=== PATIENT | male | born 1945 | race Caucasian/White ===

== ENCOUNTER 2016-03-14 16:06 | Inpatient (IN) | payer OTHER ==
[~2016-03-14] VITALS: Ht 177.8 cm; Wt 112.9 kg
--- NOTE | ~2016-03-14 | 2DMMODE ---
[facility] [place] [address] 2 D/M-MODE ECHOCARDIOGRAM Name: RD BLACK Room #: 436-P [facility] IN .R.#: [id number] Admission: 03/14/16 Attend Phys: Julianna Cameron Discharge: Date of : 41 Date of Service: 03/15/16 1516 Report #: [id number] THIS REPORT FOR: //name// Transthoracic Echocardiography Ordering physician: Phylicia Moise Referring physician: Phylicia Moise [employer] Apprentice: Dilma Crawford Indications/History: Elevated BNP. Weakness. Hx: CABG, COPD, HTN, DM, Obesity. BP: 111 / HR: 83bpm Height: 70in Weight: 249.5lb 56 Study data: M-mode, complete 2D, complete spectral Doppler, and color Doppler. Location: Echo laboratory. Routine. Image quality was fair. The study was technically limited due to restricted patient mobility and body habitus. 2D measurements Normal Normal LVID ED 49.7mm 36-57 IVS ED 15mm 6-11 LVID ES 36.2mm 23-40 LVPW ED 14.3mm 6-11 LA volume 16ml/m2 16-28 AoRoot diam 37mm 21-37 index ED LVOT diameter 20mm 18-23 Findings: Left ventricle: The cavity size was normal. Wall thickness was increased in a pattern of mild to moderateLVH. Systolic function was normal. The estimated ejection fraction was in the range of 55% to 60%. Wall motion was normal. Right ventricle: Poorly visualized. Right atrium: Poorly visualized. Appearsnormal in size. Left atrium: The atrium was normal in size. Volume index: 16ml/m2 (S). Aortic valve: Poorly visualized. Moderately calcified leaflets. Doppler: There was no stenosis. No [facility] [address] [place] [address] 2 D/M-MODE ECHOCARDIOGRAM Name: RD BLACK Room #: 436-P [facility] IN M.Cathy.#: [id number] Admission: 03/14/16 Attend Phys: Julianna Cameron Discharge: Date of : 41 Date of Service: 03/15/16 1516 Report #: [id number] regurgitation. Peak velocity: 122.3cm/s (S). Mitral valve: The valve appears to be grossly normal. Doppler: There was no evidence for stenosis. No regurgitation. Peak E-wave velocity: 82.7cm/s. Peak gradient: 2.7mm Hg (D). Peak A-wave velocity: 98.5cm/s. Tricuspid valve: Poorly visualized. Structurally normal valve. Doppler: There was no evidence for stenosis. Trivial regurgitation. Regurgitant peak velocity: 186cm/s. Peak RV-RA gradient: 14mm Hg (S). Pulmonic valve: Poorly visualized. Pericardium: There was no pericardial effusion. Aorta: Aortic root: The aortic root was normal in size. Ascending aorta is mildly dilated at 3.9cm. Pulmonary artery: Systolic pressure was estimated to be 14mm Hg plus the right atrial pressure. Diastolic function: Doppler parameters are consistent with abnormal left ventricular relaxation (grade 1 diastolic dysfunction). Systemic veins: Inferior vena cava: Poorly visualized. Conclusions Limited echo study. 1. Left ventricle: Systolic function was normal. The estimated ejection fraction was in the range of 55% to 60%. Wall motion was normal. Doppler parameters are consistent with abnormal left ventricular relaxation (grade 1 diastolic dysfunction). 2. Aortic valve: Poorly visualized. Moderately calcified leaflets. There was no stenosis. No regurgitation. 3. Mitral valve: The valve appears to be grossly normal. No regurgitation. 4. Pericardium, extracardiac: There was no pericardial effusion. <ELECTRONICALLY SIGNED> By: Reynaldo Taylor MD, [facility] 03/15/16 1640 1516 1640 Reynaldo Taylor MD, [facility] /corey
--- NOTE | ~2016-03-14 | EKG ---
[address] [address] ELECTROCARDIOGRAM REPORT Name: RD BLACK Room #: 436-P ADM IN M.R.#: [id number] Admission: 03/14/16 Attend Phys: Bin Quick MD Discharge: Date of : 41 Report #: [id number] THIS REPORT FOR: //name// [facility] ED Test Date: 2016-03-14 Test Time: 16:23:24 Pat Name: RD BLACK Department: Room: [facility] Gender: M Product Management Specialist: oleg : 1945 Requested By: Analilia Marrero Order Number: [id number] MD: Gal Glaser Measurements Intervals [place] Rate: 92 P: 57 [place]: 211 QRS: -81 QRSD: 171 T: 64 QT: 393 QTc: 487 Interpretive Statements Sinus rhythm Borderline prolonged [place] interval Probable left atrial enlargement RBBB and LAFB Left ventricular hypertrophy No previous ECG available for comparison Electronically Signed On 03-15-2016 8:18:08 PAIN MANAGEMENT SPECIALIST by Gal Glaser [email or web address] <ELECTRONICALLY SIGNED> By: Gal Glaser MD 03/15/16 0818 22 22 Gal Glaser MD /MEGAN
[~2016-03-14 16:06] MED LIST: AUGMENTIN 500-1 EACH PO; AZITHROMYCIN 2250 MG PO; CHERACOL COUGH120 ML PO; INSULIN; LANTUS SC; LASIX 40 MG TAB40 M1 PO; LIPITOR20 MG PO; LISINOPRIL30 MG PO; LORTAB 5 MG/5001 TA1 PO; NORCO 5-325 TA1 EACH PO; NOVOLIN R100 UNIT/3 IJ; PREDNISONE 20 M20 MG PO; TYLENOL325 MG PO; [UNRECOGNIZED DRUG - OTHER]
[2016-03-14 16:07] VITALS: BP 174/122
[2016-03-14 18:24] LABS: BASOPHILS 0.4 % (0.0-2.0); EOSINOPHILS 3.5 % (0.0-3.0); HEMATOCRIT 35.7 % (42.0-52.0); HEMOGLOBIN 11.3 gm/dL (14.0-18.0); LYMPHOCYTES 13.4 % (24.0-44.0); MANUAL DIFF NO; MCHC 31.8 % (28.0-37.0); MCV 72.2 fL (80.0-100.0); MONOCYTES 9.9 % (1.0-8.0); PLATELET COUNT 251 thou/uL (150-400); POLYS 72.8 % (36.0-66.0); RBC 4.94 mil/uL (4.50-6.00); RDW 17.2 % (10.5-14.5); WBC 9.6 thou/uL (4.0-11.0)
[2016-03-14 18:39] LABS: APTT 28.2 Seconds (24.5-32.8); PROTIME 10.7 Seconds (9.3-11.4)
[2016-03-14 18:47] LABS: ALBUMIN 3.2 g/dL (3.4-5.0); ALKALINE PHOSPHATASE 125 U/L (46-116); ANION GAP 7 mmol/L (7-16); BUN 23 mg/dL (7-18); CALCIUM 8.9 mg/dL (8.5-10.1); CHLORIDE 84 mmol/L (98-107); CO2 33 mmol/L (21-32); CREATININE 2.5 mg/dL (0.6-1.3); NT-PRO BRAIN NAT PEPTIDE 1920 pg/mL (<300); POTASSIUM 5.3 mmol/L (3.5-5.1); SGOT 17 U/L (15-37); SGPT 23 U/L (30-65); SODIUM 124 mmol/L (136-145); TOTAL BILIRUBIN 0.7 mg/dL (<0.1-1.0); TOTAL PROTEIN 8.9 g/dL (6.4-8.2); TROPONIN-I < 0.04 ng/mL (<0.04-0.07)
[2016-03-14 18:51] LABS: GLUCOSE 524 mg/dL (70-99)
[2016-03-14 20:30] VITALS: BP 128/63; BP 150/71
[2016-03-14 20:59] LABS: URINE BILIRUBIN NEGATIVE (Negative); URINE BLOOD 1+ (Negative); URINE COLOR YELLOW; URINE GLUCOSE-RANDOM* 3+ (Negative); URINE KETONES NEGATIVE (Negative); URINE LEUKOCYTES-REFLEX NEGATIVE (Negative); URINE PROTEIN (DIPSTICK) 1+ (Negative); URINE UROBILINOGEN 0.2 E.U./dl (0.2-1.0)
[2016-03-14 21:07] LABS: CASTS None Seen /LPF (None Seen); CRYSTALS None Seen /LPF (None Seen); SQUAMOUS None Seen /LPF (0-3); URINE WBC-REFLEX 0-5 Rare /HPF (0-5)
[2016-03-14 21:08] LABS: URINE RBC 0-2 Rare /HPF (0-2)
[2016-03-14 21:50] VITALS: BP 133/74
[2016-03-14] MEDS ORDERED: LASIX 20 MG TAB20 MG PO (23:48)
[2016-03-14] MEDS ORDERED: TRAMADOL 50 MG50 MG PO (23:52)
[2016-03-14] MEDS ORDERED: NOVOLOG100 UNIT/1 SUBQ (23:53)
[2016-03-14] MEDS ORDERED: COZAAR 25 MG TA25 M1 (23:54)
[2016-03-14] MEDS ORDERED: MYSOLINE50 MG (23:54)
[2016-03-14] MEDS ORDERED: CLARITIN10 MG PO (23:55)
[2016-03-14] MEDS ORDERED: SPIRIVA INH (23:55)
[2016-03-14] MEDS ORDERED: ADVAIR HFA115 MCG/21 (23:55)
[2016-03-14] MEDS ORDERED: NITROGLYCERIN0.4 MG SUBLING (23:56)
[2016-03-14 23:57] VITALS: BP 151/79
[2016-03-14] MEDS ORDERED: ASPIR 8181 MG PO (23:58)
[2016-03-14] MEDS ORDERED: PROAIR HFA8.5 GM (23:58)
[2016-03-14] MEDS ORDERED: THEO-24100 MG (23:59)
[2016-03-15] VITALS (9 sets, daily range): BP systolic 111–151; BP diastolic 41–86
[2016-03-15] MEDS ORDERED: LOPRESSOR100 M1
[2016-03-15 06:50] LABS: HEMATOCRIT 29.5 % (42.0-52.0); HEMOGLOBIN 9.4 gm/dL (14.0-18.0); MCH 22.8 pg (26.0-34.0); MCHC 31.9 % (28.0-37.0); MCV 71.4 fL (80.0-100.0); RBC 4.13 mil/uL (4.50-6.00); RDW 16.6 % (10.5-14.5); WBC 9.3 thou/uL (4.0-11.0)
[2016-03-15 07:24] LABS: ANION GAP 6 mmol/L (7-16); BUN 24 mg/dL (7-18); CALCIUM 8.1 mg/dL (8.5-10.1); CHLORIDE 93 mmol/L (98-107); CHOLESTEROL 105 mg/dL (<200); CO2 32 mmol/L (21-32); GLUCOSE 312 mg/dL (70-99); HDL CHOLESTEROL 31 mg/dL (>40); LDL CHOLESTEROL 45 mg/dL (<100); POTASSIUM 4.7 mmol/L (3.5-5.1); SODIUM 131 mmol/L (136-145); TC:HDL 3.4 Ratio (Not establshd); TRIGLYCERIDE 145 mg/dL (<150); VLDL 29 mg/dL (<40)
[2016-03-15 16:09] LABS: TSH 3.01 uIU/mL (0.450-4.500)
[2016-03-15] MEDS ORDERED: LEVEMIR SUBQ (17:43)
[2016-03-15 22:09] LABS: GLYCOHEMOGLOBIN (HGB A1C) 12.3 % (4.8-5.6)
[2016-03-16] VITALS (10 sets, daily range): BP systolic 87–145; BP diastolic 53–81
[2016-03-16 06:31] LABS: ALBUMIN 2.7 g/dL (3.4-5.0); CALCIUM 8.3 mg/dL (8.5-10.1); CREATININE 2.3 mg/dL (0.6-1.3); PHOSPHORUS 2.5 mg/dL (2.5-4.9); POTASSIUM 4.7 mmol/L (3.5-5.1)
[2016-03-17] VITALS (8 sets, daily range): BP systolic 121–145; BP diastolic 47–104
[2016-03-17] MEDS ORDERED: LANTUS100 UNIT/M SUBQ (10:21)
[2016-03-17] MEDS ORDERED: LOPRESSOR50 PO (10:21)
[2016-03-17] MEDS ORDERED: ASPIR 8181 MG PO (10:21)
[2016-03-17] MEDS ORDERED: HUMALOG100 UNIT/1 SUBQ (10:26)
[2016-03-17] MEDS ORDERED: NYAMYC15 GM TOP (10:26)
[2016-03-17] MEDS ORDERED: DUONEB 2.5-0.5 M3 ML INH (10:26)
[2016-03-17] MEDS ORDERED: LEVAQUIN 500 M500 M2 PO (11:04)
[2016-03-17 16:03] LABS: URINE BILIRUBIN NEGATIVE (Negative); URINE BLOOD 2+ (Negative); URINE COLOR YELLOW; URINE GLUCOSE-RANDOM* NEGATIVE (Negative); URINE KETONES NEGATIVE (Negative); URINE LEUKOCYTES-REFLEX 2+ (Negative); URINE PROTEIN (DIPSTICK) 2+ (Negative); URINE SPECIFIC GRAVITY 1.025 (1.003-1.035); URINE UROBILINOGEN 0.2 E.U./dl (0.2-1.0)
[2016-03-17 16:20] LABS: CRYSTALS None Seen /LPF (None Seen); SQUAMOUS 0-3 Few /LPF (0-3); URINE RBC 0-2 Rare /HPF (0-2); URINE WBC-REFLEX >25 Many /HPF (0-5); WBC CLUMPS Few (None Seen)
[2016-03-17 16:21] LABS: FINE GRANULAR CASTS 4-10 Moderate /LPF (None Seen)
[2016-03-18 03:25] VITALS: BP 129/53
[2016-03-18 03:38] VITALS: BP 133/65
[2016-03-18 07:46] VITALS: BP 151/63
[2016-03-18 08:20] VITALS: BP 151/63
== END 2016-03-18 11:07 | DRG 683 ==
LOC: ER 16:06 → 4S 19:37 → EROBS 19:37 → 4S 23:21
PROVIDERS: Emergency Medicine; Hospitalist; Nurse Practitioner
DX: N17.0 Acute kidney failure with tubular necrosis (principal); G45.9 Transient cerebral ischemic attack, unspecified; E87.1 Hypo-osmolality and hyponatremia; E44.1 Mild protein-calorie malnutrition; J96.10 Chronic respiratory failure, unspecified whether with hypoxia or hypercapnia; J44.9 Chronic obstructive pulmonary disease, unspecified; E11.65 Type 2 diabetes mellitus with hyperglycemia; I25.10 Atherosclerotic heart disease of native coronary artery without angina pectoris; I12.9 Hypertensive chronic kidney disease with stage 1 through stage 4 chronic kidney disease, or unspecified chronic kidney disease; N18.3 Chronic kidney disease, stage 3 (moderate); E11.22 Type 2 diabetes mellitus with diabetic chronic kidney disease; B37.9 Candidiasis, unspecified; E87.5 Hyperkalemia; E66.01 Morbid (severe) obesity due to excess calories; Z68.35 Body mass index [BMI] 35.0-35.9, adult; Z95.1 Presence of aortocoronary bypass graft; Z89.432 Acquired absence of left foot; Z79.899 Other long term (current) drug therapy; Z87.891 Personal history of nicotine dependence; Z82.49 Family history of ischemic heart disease and other diseases of the circulatory system; Z91.81 History of falling; Z79.82 Long term (current) use of aspirin; Z23 Encounter for immunization
CPT/HCPCS: 10100